=== PATIENT | female | born 1975 | race Caucasian/White ===

== ENCOUNTER 2024-04-27 10:48 | Emergency (ER) | payer OTHER ==
[2024-04-27 10:58] VITALS: BP 138/84; PULSE 98; RESP 18; TEMP 97.5; BMI 31.7
[2024-04-27] MEDS ORDERED: KETOROLAC TROMETHAMINE 30 MG/1 ML VIAL ONE (12:05)
[2024-04-27 12:27] LABS: BASO % 0.5 % (0-2.0); EOS % 0.8 % (0-4.5); HEMATOCRIT 37.3 % (32.4-45.2); HEMOGLOBIN 11.8 GM/dL (10.7-15.3); LYMPH % 13.5 % (8-40); MCHC 31.7 g/dl (32.0-36.0); MEAN CELL VOLUME 91.4 fl (80-96); MEAN PLT VOLUME 9.2 fl (7.5-11.1); MONO % 10.6 % (3.8-10.2); NEUT % 74.6 % (42.8-82.8); PLATELET COUNT 347 10^3/uL (134-434); RBC 4.08 M/mm3 (3.60-5.2); RDW 13.7 % (11.6-15.6)
[2024-04-27 12:44] LABS: POTASSIUM 4.2 mmol/L (3.5-5.1)
[2024-04-27 12:52] LABS: ALBUMIN 3.7 g/dl (3.4-5.0); CALCIUM 9.5 mg/dL (8.5-10.1); CREATININE 0.7 mg/dL (0.55-1.3)
[2024-04-27 12:53] LABS: BLOOD UREA NITROGEN 7.6 mg/dL (7-18)
[2024-04-27 12:54] LABS: TOT PROT 6.9 g/dl (6.4-8.2)
[2024-04-27] MEDS: KETOROLAC TROMETHAMINE 30 MG/1 ML VIAL IVPUSH ONE (13:35)
[2024-04-27 13:40] LABS: HIV INTERPRETATION NEGATIVE (NEGATIVE)
== END 2024-04-27 16:51 | disposition home or self-care (01) ==
LOC: JER 10:48
PROC: 3E0333Z Introduction of Anti-inflammatory into Peripheral Vein, Percutaneous Approach (ICD-10-PCS; principal; 2024-04-27)
DX: K40.91 Unilateral inguinal hernia, without obstruction or gangrene, recurrent (principal); D25.9 Leiomyoma of uterus, unspecified; R19.03 Right lower quadrant abdominal swelling, mass and lump; R10.31 Right lower quadrant pain
CPT/HCPCS: 36415; 74177-TC; 80053; 85025; 86803; 87389; 99285-25; Q9967